=== PATIENT | female | born 1980 ===

== ENCOUNTER 2019-06-13 10:55 | Outpatient (CLI) | payer OTHER ==
--- NOTE | 2019-06-13 11:22 | RAD ---
XR Lumbar Spine 2 Or 3 View HISTORY: Low back pain and right hip pain FINDINGS: No fracture, subluxation or bony destruction is identified. The vertebral body heights and disc space s maintained. IMPRESSION: No significant abnormalities are identified.
--- NOTE | 2019-06-13 11:29 | RAD ---
Exam:2 views right hip HISTORY: Pain x2 months. COMPARISON: None FINDINGS: Nonspecific heterotopic calcification along the superior lateral aspect of the right hip. T he contour of the femoral head is maintained in the hip joint spaces preserved. Visualized bony pelvis is unremarkable IMPRESSION: Nonspecific heterotopic calcification along the superior lateral aspect of the right hip. Further evaluation with hip MRI may be beneficial.
== END 2019-06-13 10:56 | disposition home or self-care (01) ==
LOC: SCSRAD 10:55
PROVIDERS: ATTEND Nurse Practitioner Family
DX: M25.551 Pain in right hip (principal); R93.6 Abnormal findings on diagnostic imaging of limbs
CPT/HCPCS: 72100